=== PATIENT | female | born 1955 | race Caucasian/White ===

== ENCOUNTER 2023-11-16 17:25 | Inpatient (IN) | payer MEDICARE, SELFPAY ==
[2023-11-16 13:34] VITALS: BP 121/79
[2023-11-16 13:48] LABS: % Basophils 0.6 % (0-2); % Eosinophils 11.7 % (0-6); % Immature Granulocytes 0.3 % (0-0.5); % Lymphocytes 22.4 % (20.5-51.1); % Monocytes 6.3 % (1.7-9.3); % Neutrophils 58.7 % (42.2-75.2); Absolute Basophils 0.1 10^3/uL (0-0.2); Absolute Eosinophils 1.3 10^3/uL (0-0.7); Absolute Lymphocytes 2.4 10^3/uL (1.2-3.4); Absolute Monocytes 0.7 10^3/uL (0.1-0.6); Absolute Neutrophils 6.4 10^3/uL (1.4-6.5); Hematocrit 37.2 % (37.0-47.0); Hemoglobin 13.1 g/dL (12.0-16.0); Mean Corp Hgb Conc. 35.2 g/dL (33.0-37.0); Mean Corpuscular Hgb 32.1 pg (27.0-31.0); Mean Corpuscular Volume 91.2 fL (81.0-99.0); Mean Platelet Volume 10.5 fL (7.4-10.4); Nucleated Red Blood Cells % 0 %; Platelet Count 271 10^3/uL (130-400); Red Blood Cell Count 4.08 10^6/uL (4.20-5.40); Red Cell Dist. Width 13.1 % (11.5-14.5); White Blood Cell Count 10.8 10^3/uL (4.8-10.8)
[2023-11-16 14:18] LABS: ALT (SGPT) 18 U/L (0-35); AST (SGOT) 25 U/L (14-36); Albumin 3.9 g/dl (3.5-5.0); Alkaline Phosphatase 86 U/L (38-126); Blood Urea Nitrogen 12 mg/dl (7-17); Calcium 9.7 mg/dl (8.4-10.2); Carbon Dioxide 28 mmol/L (22-30); Chloride 106 mmol/L (98-107); Glucose 112 mg/dl (70-99); Lipase 116 U/L (23-300); Potassium 4.6 mmol/L (3.5-5.1); Sodium 135 mmol/L (135-145); Total Bilirubin 0.6 mg/dl (0.2-1.3); Total Protein 6.7 g/dl (6.3-8.2); eGFR > 60.00
--- NOTE | 2023-11-16 14:21 | ED.GENMED ---
History of Present Illness
General
Chief Complaint: Abdominal Pain
Time Seen by Provider: 11/16/23 14:21
Travel History
Have you had any contact with someone who has COVID-19?: No
Do you have any symptoms of coronavirus? Fever > 100 degrees, chills, cough, shortness of breath, sore throat, loss of taste or smell, muscle aches, or headache?: No
History of Present Illness
History of Present Illness:
68-year-old female with history of MS not currently on medications and hypothyroidism presents for evaluation of right lower quadrant abdominal pain over the past 4 days. Pain initially was mild but worsened however has been fairly consistent for
the past 3 to 4 days, no radiation of pain. Pain is worse whenever she laughs or coughs. Denies any associated fever, chills, sweats, nausea, vomiting, or diarrhea. No history of intra-abdominal surgery. No lower urinary tract voiding symptoms
Review of Systems
Review of Systems
Allergies reviewed?: Yes
All Other Systems: ROS reviewed and negative except as documented in HPI and ROS
Phy Exam
Physical Exam
Physical Exam:
GEN: Well appearing, NAD, WDWN
HEENT: Oral mucosa moist, no scleral icterus
Cardiac: Regular rate
Lung: No respiratory distress, no tachypnea
Abdomen: Soft, pinpoint focal tenderness to the right lower quadrant, no rigidity or peritoneal signs
MSK: No gross deformity or injuries
Skin: Good color, no pallor or jaundice, no rashes
Neuro: AO x3, moves all extremities freely
Psych: Calm, cooperative
Course
Orders/Labs/Results
Orders:
Orders
11/16/23 13:40
Complete Blood Count/With Diff Urgent
Comprehensive Metabolic Panel Urgent
Lipase Urgent
11/16/23 14:40
CT Abd/Pel (IV only)-DH only Urgent
Comment:
Reason For Exam: RLQ pain
11/16/23 16:27
Urine Culture Urgent
WILY Source: U
Specimen Description:
Date Specimen was Collected: 11/16/23
Time Specimen was Collected: 15:42
11/16/23 16:29
Piperacillin/Tazo 3.375 Gram [Zosyn] 3.375 gram in 50 ml IV NOW
US Pelvis Only (non-obstetric) Urgent
Comment:
Reason For Exam: RLQ pain, equivocal CT
11/16/23 16:51
Admit/Transfer Patient As Directed
Co-Sign Provider:
Level of Care: Inpatient admission
Assign to:: Medical/Surgical
Physician / Group: arnaud
Diagnosis: apendicitis vs ruptured ovarian cyst
Reason for Hospitalization: apendicitis vs ruptured ovarian cyst
Expected length of stay greater than two midnights?: Yes
ELOS- Estimated Length of Stay in days: 2
I certify the patient meets the requirements for IP care: Yes
11/16/23 16:52
Code Status As Directed
Resuscitation Status: Full Code
Abnormal Lab Results
11/16/23
13:40
RBC 4.08 L 10^6/uL
(4.20-5.40)
MCH 32.1 H pg
(27.0-31.0)
MPV 10.5 H fL
(7.4-10.4)
Absolute Monos (auto) 0.7 H 10^3/uL
(0.1-0.6)
Absolute Eos (auto) 1.3 H 10^3/uL
(0-0.7)
Eosinophils % 11.7 H %
(0-6)
Glucose 112 H mg/dl
(70-99)
11/16/23 13:40
11/16/23 13:40
Vital Signs
Initial and Last Documented VS:
Initial Vital Signs
Temp Pulse Resp BP Pulse Ox
98.8 F 77 18 121/79 98
11/16/23 13:34 11/16/23 13:34 11/16/23 13:34 11/16/23 13:34 11/16/23 13:34
Last Documented Vital Signs
Temp Pulse Resp BP Pulse Ox
98.8 F 69 16 119/73 98
11/16/23 13:34 11/16/23 17:05 11/16/23 17:05 11/16/23 17:05 11/16/23 17:05
MDM/Problems Addressed
MDM/Problems Addressed:
CT equivocal as the abnormality in the right lower quadrant could suggest a recently ruptured ovarian cyst per radiology however I have a low suspicion for this given her age and she is postmenopausal. Images and case was reviewed with surgery who
consulted on the patient, given the atypical presentation, while this could represent appendicitis she is not clinically ill or peritoneal thus may be appropriate for IV antibiotics and conservative management. Will admit to the hospitalist
service, IV antibiotics initiated, surgery will reassess in the morning.
*Critical Care Note
Total Time (30-74mins, 75-104mins- exclusive of procedures): Not Applicable
ED Attending Note
-
Portions of this chart may have been created with voice recognition software.� Occasional wrong word or��sound alike� substitutions may have occurred due to the inherent limitations of voice recognition software.
Discharge Plan
Departure
Patient Disposition: Admit
Date of Disposition: 11/16/23
Time of Disposition: 16:31
Admit to: Med/Surg
Presentation/result/management discussed w/ accepting MD/DO: Hospitalist
Discharge Problem:
Abdominal pain, acute, right lower quadrant, Possible Appendicitis
Interventions
Interventions:
*Risk Screen - Suicide Last Done: 11/16/23 13:34
*General Assessment Last Done: 11/16/23 13:34
*Neglect/Abuse Screening Last Done: 11/16/23 13:34
ED- Fall Risk Assessment Last Done: 11/16/23 15:12
*ED COVID-19 Vaccine History Last Done: 11/16/23 13:34
DR-Cbgdjk-Cthytrrgyz Assessment Last Done: 11/16/23 15:12
[2023-11-16 15:10] VITALS: BMI 23.4
[2023-11-16 15:14] VITALS: BP 115/76
--- NOTE | 2023-11-16 16:45 | CON.GS ---
Consultation
-
Date/Time Consultation Requested: 11/16/2023 4 PM
Date/Time Consultation Performed: 11/16/2023 4 PM
Requesting Provider: Emergency department
Performing Provider: Dr. Molina
Reason for Consultation: Abdominal pain/appendicitis
Medical History
-
Chief Complaint: Right lower quadrant abdominal pain
History of Present Illness:
This is a 68-year-old female with no significant past medical history who presents with a 4-day history of right lower quadrant pain but without any other associated symptoms. The patient denies Fever, Chest Pain, Shortness Of Breath, Nausea,
Vomiting, changes in urinary and bowel habits, unintentional weight loss, jaundice, icterus, acolic stools.
Last colonoscopy: 4 years ago, negative per patient
Past Medical History
Past Medical History: None
Past Surgical History: None
Social History
Tobacco: Non-Smoker
Alcohol: None
Drug: None
Personal: Partner
Living: With Family
Family History
Family History: Reviewed & Not Pertinent
Allergies / Home Medications
Allergy/AdvReac Type Severity Reaction Status Date / Time
No Known Allergies Allergy Unverified 11/16/23 13:36
Review of Systems
-
A 10 point review of systems was completed, and was negative except as per HPI.
Physical Exam
Vital Signs
Temp Pulse Resp BP Pulse Ox
98.8 F 74 16 115/76 98
11/16/23 13:34 11/16/23 15:14 11/16/23 15:14 11/16/23 15:14 11/16/23 15:14
11/15/23 11/16/23 11/17/23
06:59 06:59 06:59
Actual Weight 63.8 kg
Body Mass Index (BMI) 23.4
Lab Results
11/16/23 13:40
11/16/23 13:40
WBC 10.8 10^3/uL (4.8-10.8) 11/16/23 13:40
Hgb 13.1 g/dL (12.0-16.0) 11/16/23 13:40
Hct 37.2 % (37.0-47.0) 11/16/23 13:40
Plt Count 271 10^3/uL (130-400) 11/16/23 13:40
Abs Immat Gran (auto) 0.0 10^3/uL (0-0.05) 11/16/23 13:40
Neutrophils % 58.7 % (42.2-75.2) 11/16/23 13:40
Physical Exam
General: Well Developed
HEENT: Normocephalic
Respiratory: Clear
GI: Soft, Non Distended and Tender (Somewhat diffusely tender, more focally tender in the right lower quadrant)
Data Reviewed
-
CT Scan: Image Personally Visualized and interpreted, Discussed with Physician and Discussed with Patient
Labs: Labs Reviewed by me, Discussed with Physician and Discussed with Patient
Total Time Spent with Patient (in minutes): 30
Assessment / Plan
-
This is a 68-year-old female who presents with a 4-day history of right lower quadrant pain but no other symptoms. She is tender to palpation in the right lower quadrant with focal peritonitis but no leukocytosis, she is afebrile and reviewing her
CT scan there is pretty minimal inflammation/free fluid in the right colic gutter. In addition there is air in the appendix and no sign of an appendicolith.
Of note she had solid food at 1 PM
Would admit for observation
Consider other causes of right lower quadrant pain ?Gynecological
Though my suspicion is low, we will proceed with nonoperative management of appendicitis for now:
-N.p.o., IV fluids
-Cipro/Flagyl x 7 days, can switch to p.o. on discharge.
Risk benefits and alternatives discussed at length, patient understands that she may fail nonoperative management and may require surgery. She agrees with the plan detailed above.
General surgical continue to follow.
[2023-11-16] MEDS: ZOSYN 50 IV ×2 (16:46→21:57)
--- NOTE | 2023-11-16 16:54 | HPS.HSE ---
Family Physician
-
Family Physician: Tomer Jenkins
Chief Complaint
-
abdominal pain
History of Present Illness
68-year-old female with past medical history of hypothyroidism, uterine fibroids, multiple sclerosis, constipation presenting with right lower quadrant abdominal pain for the past 3 days. Pain is described as sharp and radiating across her belly
also involving the right upper part of her belly. She feels that someone punched her in the belly. Pain does not radiate to her back. She denies fevers or chills. She denies nausea or vomiting. She has been recently been constipated but has
been having normal bowel movements for the past few days.
She denies any history of ovarian cysts.
She denies any abdominal surgeries.
Medical History
Past Medical History
Past Medical History: Reports Other ( hypothyroidism, uterine fibroids, multiple sclerosis, constipation)
Past Surgical History: Reports None
Social History
Tobacco: Non-smoker
Alcohol: None
Drug: None
Family History
Family History: Not pertinent
Allergies / Home Medications
Allergies reflects when Allergies were last updated in [facility].
Home Medications with original date entered in [facility]
Allergy/Medication List:
Allergies
Allergy/AdvReac Type Severity Reaction Status Date / Time
No Known Allergies Allergy Unverified 11/16/23 13:36
Review of Systems
-
History Source: Patient
A 12 point ROS was completed and negative except as noted: Yes
Constitutional: Reports No Symptoms
EENT: Reports No Symptoms
Respiratory: Reports No Symptoms
Cardiac: Reports No Symptoms
Abdomen/GI: Reports See HPI
: Reports No Symptoms
Musculoskeletal: Reports No Symptoms
Skin: Reports No Symptoms
Neurological: Reports No Symptoms
Endocrine: Reports No Symptoms
Hematologic/Lymphatic: Reports No Symptoms
Psych: Reports No Symptoms
Physical Exam
Vital Signs
Vital Signs
Temp Pulse Resp BP Pulse Ox
98.8 F 74 16 115/76 98
11/16/23 13:34 11/16/23 15:14 11/16/23 15:14 11/16/23 15:14 11/16/23 15:14
Physical Exam
General: Well Developed, Well Nourished and No Apparent Distress
HEENT: NormoCephalic, Moist mucous membranes and Atraumatic
Respiratory: Clear
Cardiac: S1/S2 and Regular Rhythm; No Murmur or Rub
GI: Soft, Non Distended, Normal Bowel Sounds and Tender (tender RUQ ); No Organomegaly
Rectal: Deferred by Provider
Musculoskeletal: No Clubbing, No Cyanosis and No Edema
Skin: No Rash
Neuro: Nonfocal/grossly intact
Laboratory Results
-
11/16/23 13:40
11/16/23 13:40
Laboratory Results
Total Bilirubin 0.6 mg/dl (0.2-1.3) 11/16/23 13:40
AST 25 U/L (14-36) 11/16/23 13:40
ALT 18 U/L (0-35) 11/16/23 13:40
Alkaline Phosphatase 86 U/L (38-126) 11/16/23 13:40
Lipase 116 U/L (23-300) 11/16/23 13:40
Data Reviewed
-
Lab Data: Labs Reviewed by me
Old Records: Reviewed
Impression/Plan
-
IMPRESSION:
PLAN:
# Possible mild early acute appendicitis versus recently ruptured ovarian cyst
-CT abdomen pelvis shows possible mild early acute appendicitis versus fluid due to recently ruptured ovarian cyst
-N.p.o.
-check pelvic ultrasound
-Zosyn
-IV fluids
-IV Dilaudid, Zofran
-General surgery evaluated and will reevaluate in the morning for possible OR
Hypothyroidism
-Continue levothyroxine
History of uterine fibroids
Multiple sclerosis
Constipation
-Resolved
Full code
DVT prophylaxis�SCDs
N.p.o.
[2023-11-16 17:05] VITALS: BP 119/73
[2023-11-16 19:30] VITALS: BP 126/75; BMI 23.0
--- NOTE | 2023-11-16 20:19 | TRANSFER ---
Received pt from ED at 1920 w dx of appendicitis vs ruptured ovarian cyst. AAOx3, VSS, C/o pain 7/10 to RLQ - tender to palpation. Bed in lowest position, call chung within reach.
[2023-11-16 20:39] LABS: Urine Albumin Negative (Neg - Trace); Urine Bilirubin Negative (Negative); Urine Character Clear (Clear); Urine Color Yellow; Urine Glucose Negative (Negative); Urine Ketone Negative (Negative); Urine Leukocyte Trace (Negative); Urine Nitrite Negative (Negative); Urine Occult Blood Negative (Negative); Urine Specific Gravity 1.005 (<1.030); Urine Urobilinogen Negative (Neg - 1+)
[2023-11-16 20:47] LABS: Urine Red Blood Cell 0-2 /HPF (0-2); Urine White Cell 0-2 /HPF (0-5)
[2023-11-16] MEDS: TYLENOL 1000 MG PO (20:51)
[2023-11-16] MEDS: NSS 1000 IV (20:51)
[2023-11-16 22:47] VITALS: BP 102/64
[2023-11-17] MEDS: ZOSYN 50 IV ×2 (03:32→09:00)
[2023-11-17] MEDS: SYNTHROID 112 MCG PO (06:25)
[2023-11-17 06:31] LABS: % Basophils 0.9 % (0-2); % Eosinophils 17.5 % (0-6); % Immature Granulocytes 0.2 % (0-0.5); % Lymphocytes 24.3 % (20.5-51.1); % Monocytes 8.8 % (1.7-9.3); % Neutrophils 48.3 % (42.2-75.2); Absolute Basophils 0.1 10^3/uL (0-0.2); Absolute Eosinophils 1.4 10^3/uL (0-0.7); Absolute Monocytes 0.7 10^3/uL (0.1-0.6); Hematocrit 34.9 % (37.0-47.0); Hemoglobin 11.9 g/dL (12.0-16.0); Mean Corp Hgb Conc. 34.1 g/dL (33.0-37.0); Mean Corpuscular Hgb 31.5 pg (27.0-31.0); Mean Corpuscular Volume 92.3 fL (81.0-99.0); Nucleated Red Blood Cells % 0 %; Platelet Count 244 10^3/uL (130-400); Red Blood Cell Count 3.78 10^6/uL (4.20-5.40); Red Cell Dist. Width 12.9 % (11.5-14.5); White Blood Cell Count 8.2 10^3/uL (4.8-10.8)
[2023-11-17 06:47] LABS: ALT (SGPT) 17 U/L (0-35); AST (SGOT) 24 U/L (14-36); Albumin 2.9 g/dl (3.5-5.0); Alkaline Phosphatase 66 U/L (38-126); Blood Urea Nitrogen 10 mg/dl (7-17); Calcium 9.6 mg/dl (8.4-10.2); Carbon Dioxide 26 mmol/L (22-30); Chloride 105 mmol/L (98-107); Estimated Creatinine Clearance 55 ml/min; Glucose 96 mg/dl (70-99); Potassium 4.4 mmol/L (3.5-5.1); Sodium 135 mmol/L (135-145); Total Bilirubin 0.8 mg/dl (0.2-1.3); Total Protein 5.6 g/dl (6.3-8.2); eGFR > 60.00
[2023-11-17 07:34] LABS: Hepatitis C Antibody Negative (Negative)
[2023-11-17 07:55] VITALS: BP 115/68
--- NOTE | 2023-11-17 09:22 | W.PN.GS2 ---
Today's Communication / Plan
-
-- ADAT
-- Abx: Cipro/Flagyl for 7 days, switch to PO on DC
-- Consult ELDERLY CAREGIVER
-- Dispo per Hospitalist
Assessment / Plan
-
Patient is a 68 yo F p/w RLQ abdominal pain.
Symptoms improved, but not completely resolved. Presentation not clearly consistent with appendicitis. No plans for surgical intervention. Recommend medical management with antibiotics for 7 days can switch to oral on discharge. Further workup
and consultation to ELDERLY CAREGIVER per hospitalist. All questions answered.
-- ADAT
-- Abx: Cipro/Flagyl for 7 days, switch to PO on DC
-- Consult ELDERLY CAREGIVER
-- Dispo per Hospitalist
Subjective Data
-
Date of Service: November 17, 2023
Feels slightly better compared to yesterday. Continues to have some RLQ abdominal discomfort. No nausea or vomiting. Appetite intact, feels like eating. No fevers or chills.
Objective Data
-
Intake and Output
11/16/23 11/17/23 11/18/23
06:59 06:59 06:59
Intake Total 1020 / 1020
Balance 1020 / 1020
Intake:
Oral fluids 120 / 120
IV fluids (Total) 800 / 800
IV piggybacks 100 / 100
Other:
Number of approximated SMALL 1
amounts of urine
Number of approximated LARGE 1
amounts of urine
Vital Signs
Temp Pulse Resp BP Pulse Ox
98.3 F 61 16 115/68 96
11/17/23 07:55 11/17/23 07:55 11/17/23 07:55 11/17/23 07:55 11/17/23 07:55
Lab Results
11/17/23 05:42
11/17/23 05:42
Calcium 9.6 mg/dl (8.4-10.2) 11/17/23 05:42
Total Bilirubin 0.8 mg/dl (0.2-1.3) 11/17/23 05:42
AST 24 U/L (14-36) 11/17/23 05:42
ALT 17 U/L (0-35) 11/17/23 05:42
Alkaline Phosphatase 66 U/L (38-126) 11/17/23 05:42
Total Protein 5.6 g/dl (6.3-8.2) L 11/17/23 05:42
Albumin 2.9 g/dl (3.5-5.0) L 11/17/23 05:42
Physical Exam
-
Gen: NAD
Abd: soft, mild tenderness to deep palpation in RLQ, ND, non-peritoneal, Rovsing's and psoas sign negative
--- NOTE | 2023-11-17 10:36 | W.PN.HOSP.TC ---
Today's Communication/Plan
-
Resume diet
Transvaginal ultrasound
Possible discharge
Assessment / Plan
Assessment / Plan
Gen-AAOx3, NAD
HEENT-NC, AT, anicteric, clear oral mm
Neck-supple
CV-reg, no M, +S1/S2
Lungs-clear B/L
Abd-soft, mild right lower quadrant tenderness, no rebound or guarding
Ext-no edema
Musculoskeletal-no cyanosis, clubbing
Skin-warm and dry
Neuro-grossly non-focal
Psych-calm, cooperative
Right lower quadrant pain -clinically doubt acute appendicitis. She sat up for me in bed and leaned forward to allow me to listen to her back and in doing so did not have any pain or discomfort. No signs or symptoms of sepsis.
Check transvaginal ultrasound given possibility of ruptured ovarian cyst. General surgery recommending discharge on oral antibiotics. Patient agreeable to go home later today. Outpatient gynecology follow-up. Diet resumed.
History of MS
Hypothyroidism -continue Synthroid
Full code
Anticipated Discharge: Today
Subjective/Interval History
-
Date of Service: November 17, 2023
Patient seen and examined. Looks comfortable overall but has some right lower quadrant pain. Cannot tell me if it is better or worse compared to yesterday. Denies nausea or vomiting. Eager to go home.
Objective Data
-
Labs:
Laboratory Results
11/17/23
05:42
WBC 8.2
Hgb 11.9 L
Hct 34.9 L
Plt Count 244
Sodium 135
Potassium 4.4
Chloride 105
Carbon Dioxide 26
BUN 10
Creatinine 0.9
Glucose 96
Calcium 9.6
Total Bilirubin 0.8
AST 24
ALT 17
Alkaline Phosphatase 66
Vital Signs:
Vital Signs
Temp Pulse Resp BP Pulse Ox
98.3 F 61 16 115/68 96
11/17/23 07:55 11/17/23 07:55 11/17/23 07:55 11/17/23 07:55 11/17/23 07:55
I&O
11/16/23 11/17/23 11/18/23
06:59 06:59 06:59
Intake Total 1020 / 1020
Balance 1020 / 1020
Review of Systems
-
History Source: Patient
All other systems: Reviewed and negative
--- NOTE | 2023-11-17 13:21 | CM ---
CM following re: discharge planning.
Reviewed pt's chart, met with pt and pt's spouse Jessica at bedside.
Pt is a 68 year old female, admitted with primary dx of Abdominal pain. Per surgeon, symptoms improved, but not completely resolved, antibiotic can be switched to oral at discharge and outpatient TRAINING EXECUTIVE recommended.
Pt reports she lives with spouse Jessica 2SH, 3 steps to enter. 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
PCP: Tomer Jenkins
Pharmacy: [facility]
D/C plan: home with anticipated no needs. Spouse to transport at discharge.
CM will follow with discharge plan updates as hospitalization progresses
[2023-11-17] MEDS: TYLENOL 650 MG PO (14:09)
--- NOTE | 2023-11-17 16:35 | W.DS.TRANS ---
DC Summary - Co Founder And Ceo
-
Discharge Instructions:
Discharge Diagnosis/Procedures Abdominal pain
Diet Low Residue
Activity As tolerated
Driving Restrictions As prior to admission
Bathing Restrictions None
Instructions:
Stand-Alone Forms:
Changes to Home Medications: No
Discharge Medications:
DC Medications w/original date entered in [facility]
Adrenal Support Supplement 2 tab PO DAILY 11/16/23
Healthy [place] Probiotic 2 cap PO DAILY 11/16/23
L-Lysine 1 tab PO DAILY 11/16/23
Magnesium + Calcium 2 tab PO DAILY 11/16/23
Magnesium Powder 0.25 tsp PO DAILY PRN supplement 11/16/23
Smooth Move Tea 1 dose PO DAILYPRN PRN constipation 11/16/23
albuterol sulfate 90 mcg/actuation aerosol inhaler 2 puff inhalation R Q4HPRN PRN sob 11/16/23
ascorbic acid (vitamin C) 1,000 mg tablet (Vitamin C) 1,000 mg PO DAILY 11/16/23
flaxseed oil 1 tbsp PO DAILY 11/16/23
ibuprofen 200 mg tablet (Advil) 400 mg PO DAILYPRN PRN mild pain 11/16/23
levothyroxine 112 mcg tablet 112 mcg PO DAILY@0700 11/16/23
amoxicillin 875 mg-potassium clavulanate 125 mg tablet 1 tab PO BID #14 tabs 11/17/23
Home Medication Changes
Pending Results: No
== END 2023-11-17 17:28 | disposition home or self-care (01) | DRG 392 ==
LOC: 2 SOUTH 17:25
PROVIDERS: Physician Assistant; ADMITTING PHYSICIAN Hospitalist; ATTENDING PHYSICIAN Hospitalist; CONSULT PHYSICIAN Surgery; EMERGENCY PHYSICIAN Emergency Medicine; FAMILY PHYSICIAN Internal Medicine
DX: R10.9 Unspecified abdominal pain (principal); E03.9 Hypothyroidism, unspecified; G35 Multiple sclerosis
CPT/HCPCS: 74177; 76830; 80053; 81003; 81015; 83690; 85025; 86803; 87086; 96365; 99285; Q9967